=== PATIENT | male | born 1990 | race Caucasian/White ===

== ENCOUNTER 2016-06-23 09:01 | Emergency (ER) ==
[2016-06-23 11:04] VITALS: BP 139/87
--- NOTE | 2016-06-23 11:07 | PROVIDER DOCUMENTATION ---
[facility] General - General Source: patient - History of Present Illness-EENT General EENT Location: reports: dental Quality of Pain: reports: aching Severity: reports: mild Onset/Duration: reports: other (chronic) Timing: reports: still present Prearrival Treatment: Initiated other Associated Symptoms: reports: tooth pain Locality of Occurance: Home Similar Symptoms Previously?: Yes Recently seen or treated by another doctor?: No <Taurus Bauman - Last Filed: 06/23/16 11:02> <Sabiha Amaral - Last Filed: 06/23/16 11:25> - General Chief Complaint: Toothache Stated Complaint: TOOTHACHE Time Seen by Provider: 06/23/16 11:00 Allergies/Adverse Reactions: Patient Allergies Allergy/AdvReac Type Severity Reaction Status Date / Time temazepam [From Restoril] AdvReac Mild VOMITING Verified 06/23/16 10:49 Home Medications: Home Medication List Medication Instructions Recorded Confirmed Last Taken Type Methadone 120 mg PO DAILY 03/01/15 09/26/15 06/23/16 History Amoxicillin 500 mg PO TID #21 tablet 06/23/16 Unknown Rx Ibuprofen 800 mg PO TID #30 tablet 06/23/16 Unknown Rx Omeprazole 20 mg PO DAILY #20 capsule. 06/23/16 Unknown Rx - History of Present Illness-EENT General Nature of Presenting Problem: 26 y/o M presents to the ED c/o right lower dental pain. chronic. patient states he has dentures on the top and is saving money to get dentures on the bottom. patient states he took Tylenol and Methadone this morning for pain. ( Taurus Bauman) Review of Systems - Adult - REVIEW OF SYSTEMS - ADULT Constitutional: denies: chills, fever Eyes: denies: blurred vision, double vision Ears, Nose, Mouth & Throat: reports: mouth/dental pain, mouth swelling. denies : throat pain Cardiovascular: denies: chest pain, palpitations Respiratory: denies: shortness of breath, wheezing Gastrointestinal: denies: diarrhea, nausea, vomiting Genitourinary: reports: no symptoms reported Musculoskeletal: reports: no symptoms reported Integumentary: denies: itching, rash Neurological: reports: no symptoms reported Psychiatric: reports: no symptoms reported Endocrine: reports: no symptoms reported Hematologic/Lymphatic: reports: no symptoms reported Allergic/Immunologic: reports: no symptoms reported <Taurus Bauman - Last Filed: 06/23/16 11:02> Past History - Adult - PAST MEDICAL HISTORY-ADULT Review of Records: reports: Nursing Assessment Review, Medications Reviewed Major Childhood Illnesses: reports: denies history Psychiatric: reports: depression - PRIOR SURGERIES/PROCEDURES Surgical/Procedure History: reports: none - PRIOR HOSPITALIZATIONS Prior Hospitalizations: reports: none - IMMUNIZATION STATUS Childhood Immunizations: NUTD Flu Vaccine: See Nurse Assessment - FAMILY HISTORY Family History: reviewed, not pertinent <Taurus Bauman - Last Filed: 06/23/16 11:02> Physical Exam- EENT - Physical Exam EENT Initial Vital Signs Reviewed: Yes General Appearance: alert, no apparent distress Throat Exam: pharynx normal, dental tenderness (right lower), other (right lower impacted molar with surrounding erythema) Neck: full range of motion, normal inspection Respiratory: lungs clear, normal breath sounds, no respiratory distress, no accessory muscle use Cardiovascular: normal peripheral pulses, regular rate, rhythm Abdominal Exam: normal bowel sounds, non tender Integumentary: normal color, warm/dry Psych/Mental Status: normal mood/affect, oriented x 3 <Taurus Bauman - Last Filed: 06/23/16 11:02> Progress <Taurus Bauman - Last Filed: 06/23/16 11:02> <Sabiha Amaral - Last Filed: 06/23/16 11:25> - PLAN OF CARE/RESULTS Progress/Plan/Lab Results: discussed follow up and discharge medication with patient. verbally understands. (Taurus Bauman) Vital Signs Temp Pulse Resp BP Pulse Ox 06/23/16 11:04 83 20 139/87 99 06/23/16 09:19 98.4 F 80 20 100 temazepam [From Restoril] Adverse Reaction (Mild, Verified 06/23/16 10:49) VOMITING Methadone 120 mg PO DAILY 03/01/15 Amoxicillin 500 mg PO TID #21 tablet 06/23/16 Ibuprofen 800 mg PO TID #30 tablet 06/23/16 Omeprazole 20 mg PO DAILY #20 capsule. 06/23/16 (Sabiha Amaral) Departure - Departure Time of Disposition Order: 11:06 Certified Medical Emergency: Emergent <Taurus Bauman - Last Filed: 06/23/16 11:02> - Departure Time of Disposition Order: 11:24 Certified Medical Emergency: Emergent <Sabiha Amaral - Last Filed: 06/23/16 11:25> - Departure DIAGNOSIS: Pain, dental Disposition: HOME 01 Condition: Good Additional Instructions: Follow up with dentist. Take medication as prescribed. ED Follow Up Instructions: You have been treated by a care provider in the Emergency Department. These instructions are being provided to you so you can have an understanding of how to care for yourself upon discharge. Upon discharge from the Emergency Department, you are responsible for making arrangements for follow-up care by a physician of your choice. Take all prescribed medications as directed. Return to the Emergency Department immediately for any new or worsening symptoms. You may call the Physician Referral phone number at [phone] to obtain a list of Physicians who are taking new patients. Prescriptions: Amoxicillin 500 mg PO TID #21 tablet Ibuprofen 800 mg PO TID #30 tablet Omeprazole 20 mg PO DAILY #20 capsule.dr Referrals: Jefry Baeza, DMD [DENTISTRY] - Instructions: Dental Pain, Dental Pain, [id number] Attestation - Scribe Verification/Attestation Scribe:: Taurus Bauman Acting as Scribe for:: Sabiha Amaral Scribe documention review:: This chart was documented by a scribe and accurately reflects the service the provider performed and the decisions made by the provider. - Physician/ PIERO Attestation Patient care was provided by Advanced Practice Provider:: Yes Advanced Practice Provider:: Sabiha Amaral Advanced Practice Provider documentation review:: The Mid-level provider documentation, treatment plan and medical decision making was reviewed by the physician who agrees with all treatment and medical decision making by the MLP. <Taurus Bauman - Last Filed: 06/23/16 11:02> - Physician/ PIERO Attestation Patient care was provided by Advanced Practice Provider:: Yes Advanced Practice Provider:: Sabiha Amaral Advanced Practice Provider documentation review:: The Mid-level provider documentation, treatment plan and medical decision making was reviewed by the physician who agrees with all treatment and medical decision making by the MLP. <Sabiha Amaral - Last Filed: 06/23/16 11:25> Physician Attestation
== END 2016-06-23 11:07 | disposition home or self-care (01) ==
LOC: ED 09:01
DX: K08.89 Other specified disorders of teeth and supporting structures (principal); R22.0 Localized swelling, mass and lump, head; Z79.899 Other long term (current) drug therapy